=== PATIENT | female | born 1950 | race Caucasian/White ===

== ENCOUNTER 2018-06-09 20:37 | Emergency (ER) | payer OTHER, SELFPAY ==
[2018-06-09 20:40] VITALS: BP 155/83; PULSE 93; RESP 16; TEMP 37.1; O2SAT 97; BMI 28.3
--- NOTE | 2018-06-09 21:16 | RAD_ITS ---
STUDY: X-RAY - RIGHT RADIUS AND ULNA REASON FOR EXAM: Female, 67 years old. Fall. TECHNIQUE: 2 view(s) of the forearm. COMPARISON: None. FINDINGS: There is no demonstrated soft tissue swelling. There is diffuse demineralization of the osseous structures. There is demineralization of the radius. There is demineralization of the ulna. 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 RAD/Forearm 2 Views IMPRESSION: Demineralization with no evidence of acute osseous process. Electronically Signed: Marquise Griffin DO at 21:42 EDT , Service support ,
--- NOTE | 2018-06-09 21:20 | RAD_ITS ---
STUDY: X-RAY - RIGHT ELBOW REASON FOR EXAM: Female, 67 years old. Fall. TECHNIQUE: 3 view(s) of the elbow. COMPARISON: None. FINDINGS: Normal visualized humerus, radius and ulna. Normal radiocapitellar and ulnotrochlear articulations. The soft tissue structures are unremarkable. RAD/Elbow min 3 Views IMPRESSION: No evidence of acute fracture or dislocation. Electronically Signed: Marquise Griffin DO at 21:45 EDT , Service support ,
--- NOTE | 2018-06-09 22:50 | ED.DCSUM_ITS ---
- ER Visit Summary Date of Service: 06/09/18 Chief Complaint: Right forearm injury History of Present Illness: The patient is a 67 F presenting with right forearm injury. Patient states she was mowing the lawn and fell, hitting her right upper extremity on the top of the mower. She did not hit her head or lose consciousness. She complains of pain in the right forearm. She is not on anticoagulants. Denies other complaints. Physical Examination: Vitals are stable. Patient is afebrile. Alert no acute distress. HEENT exam is unremarkable. Neck is nontender Lungs are clear and equal bilaterally. Heart is regular rate and rhythm. Extremities right dorsal forearm ecchymosis and hematoma. Compartments soft. AFROM. Neurovascularly intact distally Skin is warm and dry. No focal neurologic deficit. Remainder of exam is unremarkable. Emergency Department Course and Treatment: X-ray of the right elbow and forearm show no acute fracture. She is given a sling. She is advised to ice and elevate. Advised to follow-up with her primary care physician. Advised return to ED for worsening complaints. Disposition: Discharge home Impression: Right forearm hematoma This note was generated with [employer] dictation software. It may contain incorrect words, spelling, and punctuation that were not noted in review of the chart prior to signing ED Disposition - Plan for ED Patient: Chief Complaint: Upper Extremity Injury Referrals: Rambo Pang MD [Primary Care Provider] -
--- NOTE | 2018-06-09 22:50 | ED.DEP ---
ED Disposition - Plan for ED Patient: Chief Complaint: Upper Extremity Injury Instructions: ED Hematoma Referrals: Rambo Pang MD [Primary Care Provider] -
[2018-06-09 23:00] VITALS: BP 154/85; PULSE 74; RESP 16; O2SAT 98
== END 2018-06-09 23:20 | disposition home or self-care (01) ==
LOC: ED 21:38
PROVIDERS: Emergency Provider Emergency Medicine; Family Provider Family Medicine; PCP Family Medicine
DX: S50.11XA Contusion of right forearm, initial encounter (principal); W31.89XA Contact with other specified machinery, initial encounter; Y93.H9 Activity, other involving exterior property and land maintenance, building and construction; Y92.89 Other specified places as the place of occurrence of the external cause; Y99.8 Other external cause status; E78.00 Pure hypercholesterolemia, unspecified
CPT/HCPCS: 73080; 73090; 99283

== ENCOUNTER 2021-01-07 11:43 | Outpatient (RCR) | payer MEDICARE, SELFPAY ==
[2021-01-07] MEDS: COVID-19 VACC, MRNA(PFIZER)/PF 30 MCG/0.3 ML SYRINGE IM (08:42)
[2021-01-28] MEDS: COVID-19 VACC, MRNA(PFIZER)/PF 30 MCG/0.3 ML SYRINGE IM (08:28)
== END 2021-04-08 23:59 ==
LOC: IMMUN 11:43
PROVIDERS: PCP Family Medicine; Referring Provider Family Medicine; Visit Provider Family Medicine
DX: Z23 Encounter for immunization (principal)
CPT/HCPCS: 0001A; 0002A; 91300

== ENCOUNTER → 2024-01-24 | Outpatient (CLI) | payer MEDICARE, SELFPAY ==
--- NOTE | 2024-01-24 07:52 | EKG12_ITS ---
Test Reason : PRE-OP Blood Pressure : / mmHG Vent. Rate : 065 BPM Atrial Rate : 065 BPM P-R Int : 146 ms QRS Dur : 090 ms QT Int : 420 ms P-R-T Axes : 038 -27 018 degrees QTc Int : 436 ms Normal sinus rhythm Normal ECG Confirmed by GIRMA GRAYSON, SOLANGE ([id number]), television news video editor EVAN BANG ([id number]) on 01/25/2024 9:13:28 AM Referred By: Ramos Galan Confirmed By:SOLANGE RAYO MD
--- NOTE | 2024-01-24 07:55 | CT_ITS ---
CT LEFT LOWER EXTREMITY WITH 3-D IMAGING CLINICAL INDICATION: Unilateral post-traumatic osteoarthritis, left knee TECHNIQUE: Axial CT images of the LEFT lower extremity was performed without IV contrast material. Coronal and sagittal reformats were provided. RADIATION DOSAGE (If Supplied By Facility): CTDIvol = ( 18.39 ) mGy, DLP = ( 1076.47 ) mGycm COMPARISON: No relevant prior comparison study available FINDINGS: Bones: Imaging of the left hip joint was obtained. Mild degree of joint space narrowing. Imaging of the knee joint was obtained. There is a marked degree of joint space narrowing involving the medial compartment knee joint with evidence of degenerative spur formation along the medial and lateral femoral condyles as well as the medial and lateral tibial plateaus. Moderate size degenerative spur formation is also seen in the patellofemoral joint with a moderate degree of joint space narrowing. Small joint effusion. Imaging of the ankle joint was obtained. No significant abnormality is seen. Soft Tissues: The deep soft tissue structures are unremarkable. The superficial soft tissues are unremarkable without evidence of edema, hematoma, or foreign body. CT/Extremity Lower without Contra IMPRESSION: Marked degree of joint space narrowing involving the medial compartment of knee joint with degenerative spur formation as well as a moderate degree of joint space timing and patellofemoral joint. Small joint effusion. Electronically Signed: Jonn Mendez MD at 10:45 EDT ,
--- NOTE | 2024-01-24 08:05 | RAD_ITS ---
STUDY: X-RAY CHEST REASON FOR EXAM: Female, 73 years old. PRE OP TECHNIQUE: PA and lateral views of the chest. COMPARISON: None. FINDINGS: The lungs are clear and expanded. There is no demonstrated pleural abnormality. Normal size heart. Normal mediastinum and michael. Normal visualized pulmonary arteries. Normal visualized aortic arch and descending thoracic aorta. Normal visualized thoracic spine. Normal visualized ribs, clavicles, and shoulders. There is no demonstrated abnormality of the visualized soft tissue structures of the upper abdomen. RAD/Chest PA and Lateral IMPRESSION: Normal x-ray examination of the chest. Electronically Signed: Juan C Fontenot MD at 22:03 EDT ,
== END | disposition home or self-care (01) ==
LOC: CT 07:52
PROVIDERS: PCP Family Medicine; Referring Provider Orthopaedic Surgery; Visit Provider Orthopaedic Surgery
DX: Z01.811 Encounter for preprocedural respiratory examination (principal); M17.32 Unilateral post-traumatic osteoarthritis, left knee; M21.162 Varus deformity, not elsewhere classified, left knee; Z01.810 Encounter for preprocedural cardiovascular examination
CPT/HCPCS: 71046; 73700; 93005

== ENCOUNTER 2024-02-08 15:30 | Outpatient (RCR) | payer MEDICARE, SELFPAY ==
--- NOTE | 2023-11-24 13:01 | HP.PTEVAL ---
Patient's Visit Information Visit Information Visit Information: AIDA MUELLER is a 73 year old F referred to Physical Therapy by Dr. Terrance Short DPM with a diagnosis of L peroneal tendonitis. Date of Evaluation: 11/24/23 Physical Therapist: ZELALEM Pham Visit Plan Frequency: 2-3x /Week Duration: 6 Weeks Plan: Pt gets an injection in her L knee today...see effectiveness ++ spoke with dr office and they will order cortisone cream for US but ok to do US until pt gets it. 2-3X/ week for 6 weeks (18 total ordered by ) for L ankle stretching, strengthening, US to the L peroneal tendon, gait training, balance and proprioception with HEP HEP: ankle alphabet (inversion causes pain), gastroc towel stretch Subjective Subjective: Pt saw Dr for L foot pain. 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 When she takes her shoe off and it has pins and needles on the lateral side of her L foot. She got prednisone and that helped. She had TKR on the R and not on the L but does have pain on the L. She has not had an injection for about a year or so in her L knee. She walks at [facility] and ok until the end of the day. This all started about 6 months ago and does not remember an incident. She has been using icy hot and that helps. She goes to get up at night to go to the bathroom and it does hurt when her foot gets put onto the floor. She has shoe inserts in her shoes and thinks that does help Pain L lateral foot pain: Pain Intensity (Out of 10): 3 Pain Intensity Range: 9 Comment: at the end of her shift 9/10 pain Objective Objective: Gait: walks with WBOS and decreased heel to toe gait pattern and walks very stiff legged (probly due to knee pain) and decreased stance time on the L LE Pt is able to heel and toe raises with UE support for balance R ankle AROM: 0 DF and 46 PF, INV 34 (painful), EV 9 L ankle AROM: 5 DF 46 PF 36 INV, 10 EV R ankle MMT: 12.6 DF, 14.9 PF, 5.1 INV, 5 EV L ankle MMT: 8.6 DF, 12.5 PF, 4.1 INV, 4.2 EV Palpation: Tender along the L perneal tendon and at insertion Balance/Special Test Scores Lower Extremity Functional Score: 63 Goals Goal 1:: I HEP Goal Time Frame: 6-8 Weeks Goal 2:: Be able to have no pain after working a shift at [employer] on the L foot Goal Time Frame: 6-8 Weeks Goal 3:: Increase L ankle AROM (at the time of the eval:R ankle AROM: 0 DF and 46 PF, INV 34 (painful), EV 9 L ankle AROM: 5 DF 46 PF 36 INV, 10 EV) Goal Time Frame: 6-8 Weeks Goal 4:: Walk with more heel to toe gait pattern and increase stance time on B LE's Goal Time Frame: 6-8 Weeks Rehabilitation Potential Rehabilitation Potential: Good Anticipated Interventions Patient/Client Instruction: Educate patient on: Condition and Plan of Care For the Purpose of:: To decrease pain, To decrease swelling/inflammation, To increase ROM, To improve nutrient delivery to tissue, To improve muscle performance and motor function, To improve ability to perform ADL's, To increase tolerance to activity/condition/position, To improve performance and independence with ADL's, To decrease level of supervision to perform tasks, To improve ability of physical actions for home/community/work/leisure, To improve gait and locomotor functions, To improve health of tissue, To decrease soft tissue restriction and To increase flexibility/ROM Therapeutic Exercise to Include: Strength training, Balance training, Flexibilty training, Gait and locomotor training, Passive ROM and Active ROM For the Purpose of:: To decrease pain, To decrease swelling/inflammation, To increase ROM, To improve nutrient delivery to tissue, To improve muscle performance and motor function, To improve ability to perform ADL's, To increase tolerance to activity/condition/position, To improve performance and independence with ADL's, To decrease level of supervision to perform tasks, To improve ability of physical actions for home/community/work/leisure, To improve gait and locomotor functions, To improve health of tissue, To decrease soft tissue restriction and To increase flexibility/ROM Functional Training to Include: Gait training For the Purpose of:: To improve gait and locomotor functions Ultrasound (thermal/non thermal): Yes For the Purpose of:: To decrease pain, To decrease swelling/inflammation, To increase ROM, To improve nutrient delivery to tissue and To improve muscle performance and motor function Text: Thank you for the opportunity to evaluate your patient. For Medicare and Medicare O plans, please review the plan of care and approve it. It will need to be FAXED BACK to us at [phone] for Medicare purposes. For Medicare only, by signing this I certify the plan of care. Please let me know if there are questions or concerns regarding this plan of care. Physician Signature: Date:
--- NOTE | 2023-12-21 10:00 | HP.PTREVAL ---
Re-Evaluation Intro: Dr. Terrance Short, LATONYA, It has been my pleasure to treat AIDA MUELLER over the last 11 visits for L peroneal tendonitis. Please see the progress note below for an update on the physical therapy plan of care! Subjective Subjective: Pt thinks that she is better. It is not as painful when she takes her shoes off. It is still painful on the days she works but not as painful. She rests more on her day off. She can bend her foot more now and the US helps. She goes back to Dr maloney. Objective Objective/Function: R ankle AROM: 5 DF and 46 PF, INV 34 (painful), EV 10 L ankle AROM: 5 DF 54 PF 46 INV, 10 EV) Gait: walks with increase stance time on the L Plan Plan Plan: 2-3X/ week for 6 weeks (18 total ordered by ) for L ankle stretching, strengthening, US to the L peroneal tendon, gait training, balance and proprioception with HEP. ++ spoke with dr office and they will order cortisone cream for US but ok to do US until pt gets it. Balance/Gait/Functional tests Balance/Special Test Scores Lower Extremity Functional Score: 73 Goals Goals Goal 1:: I HEP Goal Time Frame: 6-8 Weeks Goal Progress: Goal Met Goal 2:: Be able to have no pain after working a shift at [employer] on the L foot Goal Time Frame: 6-8 Weeks Goal Progress: Progressing Goal 3:: Increase L ankle AROM (at the time of the eval:R ankle AROM: 0 DF and 46 PF, INV 34 (painful), EV 9 L ankle AROM: 5 DF 46 PF 36 INV, 10 EV) Goal Time Frame: 6-8 Weeks Goal Progress: Goal Met Goal 4:: Walk with more heel to toe gait pattern and increase stance time on B LE's Goal Time Frame: 6-8 Weeks Goal Progress: Progressing Anticipated Interventions Anticipated Interventions Patient/Client Instruction: Educate patient on: Condition and Plan of Care For the Purpose of:: To decrease pain, To decrease swelling/inflammation, To increase ROM, To improve nutrient delivery to tissue, To improve muscle performance and motor function, To improve ability to perform ADL's, To increase tolerance to activity/condition/position, To improve performance and independence with ADL's, To decrease level of supervision to perform tasks, To improve ability of physical actions for home/community/work/leisure, To improve gait and locomotor functions, To improve health of tissue, To decrease soft tissue restriction and To increase flexibility/ROM Therapeutic Exercise to Include: Strength training, Balance training, Flexibilty training, Gait and locomotor training, Passive ROM and Active ROM For the Purpose of:: To decrease pain, To decrease swelling/inflammation, To increase ROM, To improve nutrient delivery to tissue, To improve muscle performance and motor function, To improve ability to perform ADL's, To increase tolerance to activity/condition/position, To improve performance and independence with ADL's, To decrease level of supervision to perform tasks, To improve ability of physical actions for home/community/work/leisure, To improve gait and locomotor functions, To improve health of tissue, To decrease soft tissue restriction and To increase flexibility/ROM Functional Training to Include: Gait training For the Purpose of:: To improve gait and locomotor functions Ultrasound (thermal/non thermal): Yes For the Purpose of:: To decrease pain, To decrease swelling/inflammation, To increase ROM, To improve nutrient delivery to tissue and To improve muscle performance and motor function Re-Evaluation Ending Re-evaluation ending: Please do not hesitate to contact me at [phone] by phone or if you have questions or concerns regarding this new plan of care! Sincerely, Yadira Fournier MPT
--- NOTE | 2024-01-03 12:05 | HP.PTREVAL ---
Re-Evaluation Intro: Dr. Terrance Short, DPKrista, It has been my pleasure to treat AIDA MUELLER over the last 17 visits for L peroneal tendonitis. Please see the progress note below for an update on the physical therapy plan of care! Subjective Subjective: Pt goes back to her foot Dr on the . She goes to the knee Dr on Wednesday. She has had shots for 8 years and needs to get it done. She has pain when she works 3 days in a row. Objective Objective/Function: L ankle AROM: 5 DF 46 PF 40 INV, 12 EV) Gait: pt tends to come down more on her L foot and spends more on her L foot Plan Plan Plan: Pt will call here in [address] appt and will see if her pain gets worse without therapy 2-3X/ week for 6 weeks (18 total ordered by ) for L ankle stretching, strengthening, US to the L peroneal tendon, gait training, balance and proprioception with HEP. Balance/Gait/Functional tests Balance/Special Test Scores Lower Extremity Functional Score: 60 Goals Goals Goal 1:: I HEP Goal Time Frame: 6-8 Weeks Goal Progress: Goal Met Goal 2:: Be able to have no pain after working a shift at [employer] on the L foot Goal Time Frame: 6-8 Weeks Goal Progress: Progressing Goal 3:: Increase L ankle AROM (at the time of the eval:R ankle AROM: 0 DF and 46 PF, INV 34 (painful), EV 9 L ankle AROM: 5 DF 46 PF 36 INV, 10 EV) Goal Time Frame: 6-8 Weeks Goal Progress: Goal Met Goal 4:: Walk with more heel to toe gait pattern and increase stance time on B LE's Goal Time Frame: 6-8 Weeks Goal Progress: Progressing Anticipated Interventions Anticipated Interventions Patient/Client Instruction: Educate patient on: Condition and Plan of Care For the Purpose of:: To decrease pain, To decrease swelling/inflammation, To increase ROM, To improve nutrient delivery to tissue, To improve muscle performance and motor function, To improve ability to perform ADL's, To increase tolerance to activity/condition/position, To improve performance and independence with ADL's, To decrease level of supervision to perform tasks, To improve ability of physical actions for home/community/work/leisure, To improve gait and locomotor functions, To improve health of tissue, To decrease soft tissue restriction and To increase flexibility/ROM Therapeutic Exercise to Include: Strength training, Balance training, Flexibilty training, Gait and locomotor training, Passive ROM and Active ROM For the Purpose of:: To decrease pain, To decrease swelling/inflammation, To increase ROM, To improve nutrient delivery to tissue, To improve muscle performance and motor function, To improve ability to perform ADL's, To increase tolerance to activity/condition/position, To improve performance and independence with ADL's, To decrease level of supervision to perform tasks, To improve ability of physical actions for home/community/work/leisure, To improve gait and locomotor functions, To improve health of tissue, To decrease soft tissue restriction and To increase flexibility/ROM Functional Training to Include: Gait training For the Purpose of:: To improve gait and locomotor functions Ultrasound (thermal/non thermal): Yes For the Purpose of:: To decrease pain, To decrease swelling/inflammation, To increase ROM, To improve nutrient delivery to tissue and To improve muscle performance and motor function Re-Evaluation Ending Re-evaluation ending: Please do not hesitate to contact me at [phone] by phone or if you have questions or concerns regarding this new plan of care! Sincerely, Yadira Fournier, MPT
--- NOTE | 2024-04-20 14:20 | HP.PT.NRP ---
Patient Information Patient Information: AIDA MUELLER was seen in my office for initial evaluation on 11/24/23. The following Plan of Care was established for this patient: POC Established Initial Frequency: 2-3x /Week Initial Duration: 6 Weeks Anticipated Interventions Patient/Client Instruction: Educate patient on: Condition and Plan of Care For the Purpose of:: To decrease pain, To decrease swelling/inflammation, To increase ROM, To improve nutrient delivery to tissue, To improve muscle performance and motor function, To improve ability to perform ADL's, To increase tolerance to activity/condition/position, To improve performance and independence with ADL's, To decrease level of supervision to perform tasks, To improve ability of physical actions for home/community/work/leisure, To improve gait and locomotor functions, To improve health of tissue, To decrease soft tissue restriction and To increase flexibility/ROM Therapeutic Exercise to Include: Strength training, Balance training, Flexibilty training, Gait and locomotor training, Passive ROM and Active ROM For the Purpose of:: To decrease pain, To decrease swelling/inflammation, To increase ROM, To improve nutrient delivery to tissue, To improve muscle performance and motor function, To improve ability to perform ADL's, To increase tolerance to activity/condition/position, To improve performance and independence with ADL's, To decrease level of supervision to perform tasks, To improve ability of physical actions for home/community/work/leisure, To improve gait and locomotor functions, To improve health of tissue, To decrease soft tissue restriction and To increase flexibility/ROM Functional Training to Include: Gait training For the Purpose of:: To improve gait and locomotor functions Ultrasound (thermal/non thermal): Yes For the Purpose of:: To decrease pain, To decrease swelling/inflammation, To increase ROM, To improve nutrient delivery to tissue and To improve muscle performance and motor function Last Seen Last Seen: This patient was last seen in our office 02/08/24. Pertinent comments regarding their Physical therapy will appear below: DC PT At this point I will be discontinuing this patient from physical therapy. I would be happy to see this patient again in the future if found appropriate by the physician. Thank you! Yadira Fournier, MPT Balance/Gait/Functional tests Balance/Special Test Scores Lower Extremity Functional Score: 60
== END 2024-02-08 19:00 | disposition home or self-care (01) ==
LOC: PT 15:30
PROVIDERS: PCP Family Medicine; Referring Provider Student in an Organized Health Care Education/Training Program; Visit Provider Student in an Organized Health Care Education/Training Program
DX: M76.72 Peroneal tendinitis, left leg (principal)
CPT/HCPCS: 97035; 97110; 97140; 97161; 97530

== ENCOUNTER → 2024-02-14 | Outpatient (CLI) | payer MEDICARE, SELFPAY ==
[2024-02-14 14:52] LABS: Absolute Lymphocyte Count 1.67 X10^3/uL (0.83-4.51); Absolute Neutrophil Count 9.5 X10^3/uL (2.0-7.7); Basophil# 0.04 X10^3/uL; Basophil% 0.3 % (0-1); Eosinophil# 0.12 X10^3/uL; Hematocrit 38.3 % (37-47); Hemoglobin 12.5 g/dL (12.0-15.0); Lymphocyte # 1.67 X10^3/ul (0.83-4.51); Lymphocyte % 13.3 % (19-41); Mean Corp Hgb Conc 32.6 g/dL (32-36); Mean Corpuscular Hgb 29.4 pg (27.0-32.0); Mean Corpuscular Volume 90.1 fL (81-99); Mean Platelet Vol. 11.7 fl (6.2-12.0); Monocyte# 1.14 X10^3/uL; Monocyte% 9.1 % (0-10); NRBC Flagged by Analyzer 0 % (0-5); Neutrophil # 9.47 X10^3/uL (2.7-7.7); Neutrophil % 75.7 % (47-70); Platelet Count 250 K/mm3 (150-450); RBC Distribution Width CV 12.6 % (11.6-14.6); RBC Distribution Width SD 41.4 fl (35.1-43.9); Red Blood Count 4.25 M/mm3 (4.2-5.4); White Blood Count 12.5 K/mm3 (4.4-11.0)
[2024-02-14 15:44] LABS: Albumin, Serum 3.2 g/dL (3.2-5.0); Anion Gap 7 (5-15); BUN 12 mg/dL (7-18); BUN/Creat Ratio 11.2 RATIO (10-20); Calcium,Total 8.8 mg/dL (8.5-10.1); Chloride 106 mmol/L (98-107); Creatinine, Serum 1.07 mg/dL (0.55-1.02); EST Glomerular Filtration Rate 53 mL/min (>60); Est Glom Filt Rate - Afr Amer 64 mL/min (>60); Glucose 144 mg/dL (74-106); Potassium 3.5 mmol/L (3.5-5.1); Sodium Level 140 mmol/L (136-145)
[2024-02-16 14:00] LABS: Hemoglobin A1c 5.5 % (3.8-5.6)
== END | disposition home or self-care (01) ==
LOC: LAB 09:00
PROVIDERS: PCP Family Medicine; Referring Provider Orthopaedic Surgery; Visit Provider Orthopaedic Surgery
DX: Z01.810 Encounter for preprocedural cardiovascular examination (principal); M17.32 Unilateral post-traumatic osteoarthritis, left knee; M21.162 Varus deformity, not elsewhere classified, left knee; Z01.811 Encounter for preprocedural respiratory examination; Z01.818 Encounter for other preprocedural examination; R73.03 Prediabetes
CPT/HCPCS: 36415; 80048; 82040; 83036; 85025; 87641

== ENCOUNTER → 2024-02-16 | Outpatient (CLI) | payer MEDICARE, SELFPAY ==
[2024-02-16 17:26] LABS: Hemoglobin A1c 5.5 % (3.8-5.6)
== END | disposition home or self-care (01) ==
LOC: LAB 15:10 → LAB.FUTURE 16:37 → LAB 16:38
PROVIDERS: PCP Family Medicine; Referring Provider Orthopaedic Surgery; Visit Provider Orthopaedic Surgery
DX: R73.09 Other abnormal glucose (principal)
CPT/HCPCS: 36415; 83036

== ENCOUNTER → 2024-03-13 | Outpatient (CLI) | payer MEDICARE, SELFPAY ==
--- NOTE | 2024-03-13 | KNEE_PTH ---
PATIENT: AIDA MUELLER LOC: [facility] U#:[id number] AGE/SX: 73/F ROOM: RE03/13/[address]: Dr. Ramos Galan MD : 1950 BED: DIS: 03/13/2024 SPEC #: [id number] RECD: 03/13/24 15:26 STATUS: ANA RETrung #: [id number] AMEYA: 03/13/24 00:[address]: Ramos Galan DEPT: SURGICAL PATHOLOGY RECD BY: Adonay Macdonald ENTERED: 03/14/24 09:27 SP TYPE: TOTAL KNEE OTHR DR: Dr. Rambo Pang MD Tissues: Knee, NOS Procedures: Decalcification bone/plaque Surgery Specimen Level IV HEADER OPERATION: Left total knee arthroplasty PRE-OP DIAGNOSIS: Right knee grade IV osteoarthritis TISSUE SUBMITTED: Bone and soft tissue right knee MICROSCOPIC DIAGNOSIS Bone and soft tissue, right knee, total knee replacement/resection: Pieces of bone with degenerative osteoarthritic changes. Fibroadipose tissue, fibroconnective tissue and reactive synovial tissue. : 03/17/24 MICROSCOPIC DESCRIPTION Slides are reviewed. GROSS DESCRIPTION Received is one container designated bone and soft tissue left knee. The specimen consists of multiple fragments of monk-yellow bone measuring in aggregate 10.0 x 11.0 x 3.0 cm. Also in the specimen container are multiple fragments of yellow-white soft tissue measuring in aggregate 7.0 x 6.0. x 2.0 cm. A number of bony fragments contain articular surfaces consistent with tibial plateau and femoral condyle and displaying prominent osteophyte formation, eburnation and bone erosion. Cosmetic Counselor sections are submitted in two cassettes as follows: 1 - soft tissue, 2 - bone after decalcification. / JEMMA/ 03/14/24 TC:5 CPT: 79945, 53266
== END | disposition home or self-care (01) ==
LOC: LABSPEC 15:28
PROVIDERS: PCP Family Medicine; Referring Provider Orthopaedic Surgery; Visit Provider Orthopaedic Surgery
DX: M17.11 Unilateral primary osteoarthritis, right knee (principal)
CPT/HCPCS: 88305; 88311

== ENCOUNTER → 2024-03-28 | Outpatient (CLI) | payer MEDICARE, SELFPAY ==
--- NOTE | 2024-03-28 12:33 | VDLE_ITS ---
Reason For Study: LLE Swelling RIGHT LEFT CFV is compressible, spontaneous, phasic, GSV is normal. competent and demonstrates normal CFV is compressible, spontaneous, phasic, augmentation. competent, and demonstrates normal Procedure augmentation. This is a venous duplex using B-mode, color FV is compressible, spontaneous, phasic, flow and spectral Doppler. competent and demonstrates normal Exam performed in department. augmentation. The exam was diagnostic. POP V is compressible, spontaneous, phasic, A preliminary report was called and/or faxed competent and demonstrates normal to [facility]. augmentation. T/P Trunk is compressible. PTV is compressible. LT PerV is compressible. Non Vascularized anechoic area measuring approximately 5.49cm x 1.00cm is noted in Lt Pop Fossa. VL/Venous Duplex US, Unilateral Interpretation Summary There is no evidence of left lower extremity deep vein thrombosis. Left great s aphenous vein appears patent and compressible segmentally. Left popliteal fossa avascular 5.49 x 1 cm structure suspicious for a Nicole's cyst. Clinical correlation would be appropriate. Normal flow patterns right common femoral vein Ordering Physician: Heriberto Holloway Referring Physician: MD Bird Rambo Performed By: Man Lang RVT
== END | disposition home or self-care (01) ==
LOC: CVS 12:32
PROVIDERS: PCP Family Medicine; Referring Provider Physician Assistant; Visit Provider Physician Assistant
DX: R22.42 Localized swelling, mass and lump, left lower limb (principal)
CPT/HCPCS: 93971